=== PATIENT | female | born 1990 | race African-American/Black ===

== ENCOUNTER 2022-05-30 00:16 | Day surgery (SDC) | payer OTHER, SELFPAY ==
[2022-05-23 12:07] VITALS: BMI 37.4
--- NOTE | 2022-05-23 12:15 | PC.NURSE ---
Report to the Outpatient Waiting Room, entrance under the green pavilion located off [facility], at time 0600 on date 05/30/22. OR Time: 0730. - You and your visitor will be asked a series of questions to screen for COVID 19 for your protection. - Only one visitor is allowed at this time. - The patient visitor is requested to leave or wait in car when not with patient. - A mask is required within the hospital. Patients may have clear liquids (water, carbonated beverages, clear teas, apple juice) until 3 hours prior to surgery with a maximum of 20 ounces. - No food from midnight until time of surgery Take the following medications with a SIP of water the morning of surgery: SERTRALINE Medications to discontinue per physician: N/A Date to take last dose: N/A Please no make-up, nail lithuanian, hairspray, perfume, deodorant, or body powder the day of surgery. No jewelry (including any body piercings) or valuables the day of surgery, leave them at home. Please take a shower or bath the night before, or the morning of, surgery with an antibacterial soap. Wear comfortable, loose fitting clothing. - Jewelry must be removed prior to entering the operating room. Rings and piercings that are not removed may be cut off. - The hospital will not accept responsibility for valuables. - Please leave all valuables, including medications, at home the day of surgery. If you are going home after surgery, a licensed full service vending driver must drive you home. - NO public transportation without another adult. - We recommend that an adult stay with you for 24 hours following discharge. - We also recommend that you do not drive, make important decision, drink alcoholic beverages, or take any drugs that were not prescribed by your health care provider for at least 24 hours after your discharge time. Follow any additional instructions given to you from your surgeon. If you or anyone in your household have experienced Covid symptoms in the past week, please notify your surgeon or the nurse liaison at the phone number below for possible testing. Telephone instructions given to PT - HELGA HAIRSTON and asked if any additional questions and then verbalized understanding. Patient advised to call surgeon office or pre surgery nurse liaison [phone] if any additional questions.
[2022-05-30] VITALS (10 sets, daily range): BP systolic 105–132; BP diastolic 63–107; PULSE 81–105; RESP 12–18; TEMP 36.2–36.7; O2SAT 96–100
[2022-05-30] MEDS: ACETAMINOPHEN 500 MG TABLET 1000 MG PO (06:31)
[2022-05-30] MEDS: LACTATED RINGERS 1,000 ML 30 ML IV CONT ×2 (06:35→09:32)
--- NOTE | 2022-05-30 06:48 | P.PNAN_ITS ---
Anes - Initial Pre Proc Eval Procedure: Operation Date: 05/30/22 07:30 Proposed Procedures p Laparoscopic Salpingectomy - Ebony Fragoso MD Date/Time: 05/30/22 06:48 Surgeon: Ebony Fragoso MD Pre Op Diagnosis: Vol Sterilization Patient Data Age: 32 Gender: F Height: 1.65 m Weight: 101.3 kg Last Vital Signs Temp 36.7 C 05/30/22 06:18 Pulse 81 05/30/22 06:18 Resp 18 05/30/22 06:18 BP 115/67 05/30/22 06:18 Pulse Ox 100 05/30/22 06:18 O2 Del Method Room Air 05/30/22 06:18 Allergies Allergy/AdvReac Type Severity Reaction Status Date / Time naproxen Allergy Intermediate Swelling Unverified 05/30/22 06:42 Home Medications Medication Instructions Recorded Confirmed Type amitriptyline 25 mg tablet 25 mg PO HS 05/23/22 05/30/22 History cyclobenzaprine 10 mg tablet 10 mg PO TID PRN Pain 05/23/22 05/30/22 History etonogestrel 0.12 mg-ethinyl 1 vag ring vaginal MONTHLY 05/23/22 05/30/22 History estradiol 0.015 mg/24 hr vaginal ring (EluRyng) ibuprofen 800 mg tablet 800 mg PO TID PRN Pain 05/23/22 05/30/22 History sertraline 100 mg tablet 100 mg PO DAILY 05/23/22 05/30/22 History Patient hx anesthesia problems: none Family hx anesthesia problems: post op nausea/vomiting Results Review: All pre-operative results and documents have been reviewed as part of the pre- operative evaluation. [facility] Past Medical History Medical History Anxiety Depression Hx of migraines Social History Social History Years smoked: 1.5 Smoking status: Former smoker Tobacco type: cigarettes Smoking end date: 10/22/16 Alcohol intake: current Drinks per week: 2 Substance use: never Substance use type: does not use Living arrangements: with family Additional living arrangements comments: CHILDREN AND BOYFRIEND Spiritual care concerns: No Anes - Eval Final PreProcedure Day of Procedure 05/30/22 06:48 Patient weight: obese Heart: regular rate and rhythm Lungs: clear to auscultation Airway: Mallampati scale class II Neurological: alert and oriented Last oral intake: >/= 8 hours ASA classification: II Emergent: no Anesthetic plan: proceed Anesthesia type and monitoring: general ETT and standard monitoring Results Review: All pre-operative results and documents have been reviewed as part of the pre- operative evaluation. Informed Consent: The patient's anesthetic plan and its attendant risks and benefits were discussed with the patient/family/POA. Questions were solicited and answers provided to the satisfaction of the patient/family/POA.
--- NOTE | 2022-05-30 07:11 | PM.IMHP ---
H&P: HPI History of Present Illness Date/Time: 05/30/22 07:11 Chief Complaint: sterilization Narrative: Haroldo is a 32yo here for sterilization with LSC bilateral salpingectomy. she is certain her childbearing is complete. she has had LSC appy and she has obesity. Review of Systems Review of Systems: All systems reviewed & are unremarkable except as noted in HPI and below PMFSH Past Medical History Medical History Anxiety Depression Hx of migraines Social History Social History Years smoked: 1.5 Smoking status: Former smoker Tobacco type: cigarettes Smoking end date: 10/22/16 Alcohol intake: current Drinks per week: 2 Substance use: never Substance use type: does not use Living arrangements: with family Additional living arrangements comments: CHILDREN AND BOYFRIEND Spiritual care concerns: No Meds Home Medications and Allergies Home Medications Medication Instructions Recorded Confirmed Type amitriptyline 25 mg tablet 25 mg PO HS 05/23/22 05/30/22 History cyclobenzaprine 10 mg tablet 10 mg PO TID PRN Pain 05/23/22 05/30/22 History etonogestrel 0.12 mg-ethinyl 1 vag ring vaginal MONTHLY 05/23/22 05/30/22 History estradiol 0.015 mg/24 hr vaginal ring (EluRyng) ibuprofen 800 mg tablet 800 mg PO TID PRN Pain 05/23/22 05/30/22 History sertraline 100 mg tablet 100 mg PO DAILY 05/23/22 05/30/22 History Allergies Allergy/AdvReac Type Severity Reaction Status Date / Time naproxen Allergy Intermediate Swelling Unverified 05/30/22 06:42 Vital Signs Vital Signs - 24 hr 05/30/22 06:18 Temperature 98.0 F Pulse Rate 81 Respiratory Rate 18 Blood Pressure 115/67 Pulse Oximetry 100 Oxygen Delivery Room Air Exam Const: General: no acute distress Resp: Effort & Inspection: normal respiratory effort Auscultation: clear to auscultation bilaterally Cardio: Rate: regular rate Rhythm: regular rhythm GI: GI Palp: Yes Soft to palpation Extrem: General: normal to inspection Assessment and Plan Assessment and plan (1) Admission for sterilization: Code(s): Z30.2 - Encounter for sterilization Status: Acute Plan desires sterilization discussed RBA of sterilization by LSC bilateral salpingectomy, pt consented will proceed.
--- NOTE | 2022-05-30 07:19 | WPDHPUPDATE1 ---
History and Physical Update Update Date/Time: 05/30/22 07:19 History and Physical has been reviewed, including an updated exam of the patient. There are NO changes in the patient's condition. Risks, benefits, and alternatives have been discussed and questions answered. Patient agrees to proceed with procedure.
[2022-05-30] MEDS: ceFAZolin SODIUM 1 GM VIAL 2 GM IV PUSH (07:45)
[2022-05-30] MEDS: BUPIVACAINE/EPINEPHRINE 0.25% 50 ML VIAL 10 ML INFILTRATE (08:02)
--- NOTE | 2022-05-30 09:01 | W.PM.PROC2 ---
Procedure Note - Detailed Date of Procedure 05/30/22 Pre-op Diagnosis Vol Sterilization Post-op Diagnosis Same Procedure Performed Laparoscopic Bilateral Salpingectomy Surgeon Ebony Fragoso MD Anesthesia General Indications undesired future fertility Findings normal uterus, tubes and ovaries Description of Procedure The patient was taken to the OR and placed in dorthal lithotomy in [facility]. She received general anesthesia. A speculum was placed and the cervix grasped with a single tooth tenaculum and an acorn uterine manipulator placed easily. A linares catheter had previously been placed. She had received preoperative antibiotics. A 5mm subumbilical skin incision was made and using direct visualization, the trocar was inserted intraperitoneally. The abdomen was insufflated and the pelvis inspected with the above findings. Bilateral 5mm incisions were made and trocars were placed under direct visualization. The left tube was grasped and elevated and using the Ligasure device, the tube was sequentially cauterized and ligated and removed through the trocar and sent to pathology. Brisk bleeding was noted at the cornua and was addressed with ligasure. Once it was hemostatic hemaderm was placed over the area. Similarly, on the right, the tube was removed using the Ligasure device. Hemostasis was noted. The right surgical resection area was again inspected and found to be hemostatic. CO2 was removed from the abdomen while watching the area that had been bleeding and it remained hemostatic. The trocars were removed and the remainder of Co2 was removed from the abdomen. The skin was closed with 4-0 vicryl and steri strips. The patient tolerated the procedure well and was taken to the recovery room in stable condition. EBL 200 c. Estimated Blood Loss 200 Drains No Packing No Pathology Yes Complications No immediate complications Condition Stable Disposition Same day
[2022-05-30] MEDS: fentaNYL CITRATE INJ (*CRX) 100 MCG/2 ML VIAL 25 MCG IV PUSH ×6 (09:29→10:13)
[2022-05-30] MEDS: MEPERIDINE HCL INJ (*CRX) 50 MG/ML AMPUL IV PUSH (10:03)
[2022-05-30] MEDS: oxyCODONE HCL (*CRX) 5 MG TAB IR PO (11:02)
== END 2022-05-30 11:47 | disposition home or self-care (01) ==
PROVIDERS: PCP Physician Assistant; Visit Provider Obstetrics & Gynecology
PROC: (CPT 49320; principal; 2022-05-30 07:30)
DX: Z30.2 Encounter for sterilization (principal); F41.9 Anxiety disorder, unspecified; F32.A Depression, unspecified; Z87.891 Personal history of nicotine dependence; E66.9 Obesity, unspecified; Z68.37 Body mass index [BMI] 37.0-37.9, adult
CPT/HCPCS: 58661; 88302; A9270; J0330; J0690; J1100; J1885; J2175; J2250; J2405; J2704; J3010; J7030; J7120